=== PATIENT | male | born 1980 | race Caucasian/White ===

== ENCOUNTER → 2019-01-08 10:15 | Outpatient (CLI) | payer OTHER, SELFPAY ==
--- NOTE | 2019-01-08 | DI.US.S_ITS ---
PROCEDURE: US ABDOMEN COMPLETE INDICATIONS: ABDOMINAL PAIN TECHNIQUE: Real-time scanning was performed of the abdominal and retroperitoneal organs, with image documentation. COMPARISON: [facility], [place], ABDOMEN COMPLETE, 05/22/2008, 10:28. FINDINGS: Liver: Liver is diffusely increased in echogenicity. No focal hepatic abnormalities identified. Normal hepatic size. Gallbladder: No gallstones identified. Normal gallbladder wall. No pericholecystic fluid. Negative sonographic Marie sign. Biliary ducts: Intrahepatic bile ducts are non-dilated. Extrahepatic bile duct caliber measures 4.7 mm. Normal is 6-7 mm or less in diameter, or 10 mm or less post-cholecystectomy. Pancreas: Visualized portions of the pancreas are sonographically normal. Spleen: Spleen is normal in size and homogeneous in echotexture. Kidneys: Kidneys are normal in size and echotexture. Right kidney measures 11.1 cm long; left kidney measures 12.2 cm long. No hydronephrosis or nephrolithiasis. No solid masses. Aorta: Visualized aorta is normal in caliber at less than 3 cm. Iliacs: Proximal common iliac arteries are normal in caliber at less than 2.5 cm. IVC: Intrahepatic inferior vena cava is patent. Miscellaneous: No free abdominal fluid. IMPRESSION: 1. Increased hepatic echogenicity noted possibly related to hepatic steatosis but other sources of hepatocellular disease cannot be excluded. Recommend clinical correlation. Dictated by: Raghu Gabriel [facility] Interpreted: Micah Maddox MD on 01/08/2019 at 13:51 Approved by: Micah Maddox M.D. on 01/08/2019 at 16:46
== END ==
PROVIDERS: Family Provider Family Medicine; PCP Family Medicine; Visit Provider Family Medicine
DX: R10.9 Unspecified abdominal pain (principal); R19.7 Diarrhea, unspecified
CPT/HCPCS: 76700

== ENCOUNTER → 2019-01-15 07:27 | Outpatient (CLI) | payer OTHER, SELFPAY | PROVIDERS: PCP Family Medicine; Visit Provider Family Medicine | DX: E29.1 Testicular hypofunction (principal) | CPT/HCPCS: 36415; 84403 ==

== ENCOUNTER → 2019-01-26 09:31 | Outpatient (CLI) | payer OTHER, SELFPAY ==
[2019-01-31 13:32] LABS: (tTG) Ab, IgA < 1 U/mL
== END ==
PROVIDERS: PCP Family Medicine; Visit Provider Family Medicine
DX: E29.1 Testicular hypofunction (principal); R10.9 Unspecified abdominal pain; R19.7 Diarrhea, unspecified
CPT/HCPCS: 36415; 82784; 83516; 84403; 86255

== ENCOUNTER → 2021-10-29 10:45 | Outpatient (CLI) | payer OTHER, SELFPAY ==
[2021-10-29 12:57] LABS: COVID19 -Nasal RAPID Negative (Negative)
== END ==
PROVIDERS: PCP Family Medicine; Visit Provider Family Medicine Sleep Medicine
DX: Z20.822 Contact with and (suspected) exposure to COVID-19 (principal)
CPT/HCPCS: 87635; C9803

== ENCOUNTER → 2021-11-01 15:03 | Outpatient (CLI) | payer OTHER, SELFPAY ==
--- NOTE | 2021-11-01 15:51 | PM.TREADMILL ---
Cardiac Stress Test Report Referral & Results Date Patient Seen: 11/01/21 Time Patient Seen: 15:52 Requesting provider: Boo Headley Indication: other chest pain Rest ECG: Sinus rhythm Procedure Note: Standard Wilberto protocol, 7:19, 8.1 METS Reduced exercise capacity, +37% Accelerated heart rate respone with minimal exercise; HR went from 85 BPM to 120's BPM within the first 3 mins into exercise; hypertensive at baseline No significant ST changes with peak exercise No ectopy Impression: Normal exercise stress test Please note: Actual ECG tracings can be found in the PACS system.
--- NOTE | 2021-11-01 19:15 | DI.NM.S_ITS ---
DATE OF SERVICE: 11/01/2021 PROCEDURE PERFORMED: Exercise treadmill stress test without imaging. ORDERING PROVIDER: Dr. Boo Headley. INDICATIONS: The patient is a 41-year-old male with a history of palpitations and atypical chest pressure. FINDINGS: 1. The patient was able to exercise for 7 minutes, 19 seconds on a standard Wilberto protocol, suggesting moderate to severely reduced exercise capacity with an SRIRAM of +37%, achieving 10.1 METs. 2. The patient had an accelerated heart rate response to exercise with a resting heart rate of 106 BPM that increased to 127 BPM after 1 minute of exercise, 141 BPM after 3 minutes of exercise, and achieved a maximum heart rate of 179 BPM (99% of his predicted maximum) at peak exercise. He had a normal blood pressure response. 3. He had no chest pain or anginal symptoms. 4. His resting ECG shows sinus tach with normal ST segments. With exercise, there were no significant ST-segment shifts or arrhythmias. IMPRESSION: 1. Normal exercise treadmill stress test for ischemia. 2. Moderate-severely reduced exercise capacity with an accelerated heart rate response to exercise but no angina or arrhythmias. Tai Bach - BEN/beryl/lc doc#: [id number]/job#: [id number] dd: 11/01/2021 16:45:00 dt: 11/01/2021 18:53:00 DICTATING /COPIES TO: Nate Goodson MD; Boo Headley M.D. COPIES MNE: BETH;
== END ==
PROVIDERS: PCP Family Medicine; Referring Provider Family Medicine; Visit Provider Family Medicine
DX: R07.89 Other chest pain (principal); R00.2 Palpitations
CPT/HCPCS: 93017

== ENCOUNTER → 2022-01-09 09:37 | Outpatient (CLI) | payer OTHER, SELFPAY ==
[2022-01-09 10:51] LABS: Influenza A - CEPHEID Flu A NEGATIVE (NEGATIVE); Influenza B - CEPHEID Flu B NEGATIVE (NEGATIVE)
[2022-01-09 11:22] LABS: COVID-19 CEPHEID PCR (VTM/NP) POSITIVE (Negative)
== END ==
PROVIDERS: PCP Family Medicine; Visit Provider Physician Assistant
DX: J02.9 Acute pharyngitis, unspecified (principal)
CPT/HCPCS: 0240U; 87070